=== PATIENT | male | born 1965 | race Caucasian/White ===

== ENCOUNTER 2021-04-02 16:54 | Emergency (ER) | payer OTHER, SELFPAY ==
--- NOTE | ~2021-04-02 | XR_ITS ---
EXAMINATION: XR abdomen/kub 1V EXAM DATE: 04/02/2021 17:28 INDICATION: Left lower quadrant pain and bloating. TECHNIQUE: Frontal projection(s) of the abdomen for interpretation. There is no prior study for elroy white. FINDINGS: There is expected amount of colonic stool and gas. No small bowel dilation, nonobstructi ve bowel gas pattern. There are no suspicious calcifications identified. There is no organomegaly suspected. The bones are unremarkable. There is no free intraperitoneal air. The lung bases are clear. IMPRESSION: Unremarkable abdomen x-ray exam. Reviewed, dictated and finalized at location A. [facility]
[2021-04-02 17:03] VITALS: BP 160/89; PULSE 81; RESP 18; TEMP 37.1; O2SAT 97
--- NOTE | 2021-04-02 17:18 | ED.ABDPAIN ---
HPI - Abdominal Pain General Chief Complaint: Abdominal Pain Stated Complaint: Stomach pain History of Present Illness HPI narrative: This is a 55-year-old male comes in complaining of lower left abdominal pain patient states that he has abdominal cramping with last bowel movement yesterday. Patient states he called his primary care provider and primary care provider appointment with the GI specialist. Patient wants to come in to see if there is anything else we can do. Patient states that he does not have any pain today Related Data Home Medications Medication Instructions Recorded Confirmed atorvastatin 20 mg PO DAILY 04/02/21 04/02/21 fluoxetine 20 mg PO DAILY 04/02/21 04/02/21 trazodone 50 mg PO DAILY 04/02/21 04/02/21 Allergies Allergy/AdvReac Type Severity Reaction Status Date / Time No Known Allergies Allergy Verified 04/02/21 17:09 Review of Systems Review of Systems: Pain in stomach All systems reviewed & are unremarkable except as noted in HPI and below PMFSH Comments At time as signature, I have reviewed and agree with nursing past medical, social, surgical and family history. Please see nursing chart for further information. There is no relevant family history pertinent to the presenting complaint. Exam Narrative: GENERAL:Well-appearing, well-nourished, and in no acute distress. HEAD:Normocephalic, atraumatic. EYES: PERRLA ENT: Nares clear, no rhinorrhea or epistaxis. Mucous membranes moist. CHEST: Clear to auscultation. No respiratory distress. ABDOMEN: Soft, nontender, nondistended, normal active bowel sounds. EXTREMITIES: Normal range of motion. No edema. SKIN: Warm, dry, no rash. NEURO: No focal deficits. Alert and oriented x3. Course Course Emergency Course: KUB negative Vital Signs Vital signs: Vital Signs Temperature 98.8 F 04/02/21 17:03 Pulse Rate 81 04/02/21 17:03 Respiratory Rate 18 04/02/21 17:03 Blood Pressure 160/89 H 04/02/21 17:03 Pulse Oximetry 97 04/02/21 17:03 Temperature 98.8 F 04/02/21 17:03 Pulse Rate 81 04/02/21 17:03 Respiratory Rate 18 04/02/21 17:03 Blood Pressure 160/89 H 04/02/21 17:03 Pulse Oximetry 97 04/02/21 17:03 MDM - Abdominal Pain Differential Diagnosis Differential diagnosis: Likely abdominal pain, acute appendicitis, calculus of kidney, constipation, endometriosis, gastroenteritis, pancreatitis and small bowel obstruction Imaging Data Radiologist's impression: ITS Impressions Abdomen X-Ray 04/02/21 17:29 IMPRESSION: Unremarkable abdomen x-ray exam. Discharge Plan Discharge Clinical Impression: Abdominal pain Qualifiers: Abdominal location: unspecified location Qualified Code(s): R10.9 - Unspecified abdominal pain Hypertension Qualifiers: Hypertension type: unspecified Qualified Code(s): I10 - Essential (primary) hypertension Patient Disposition: Home, Self-Care Condition: Stable Instructions: Antibiotic Form, Abdominal Pain (ED) Additional Instructions: No serious cause of abdominal pain is found at this time. It is important to carefully watch for changes in the abdominal pain that might suggest a serious condition. See your doctor or return to the emergency department immediately if your condition gets worse. These symptoms suggest serious causes of abdominal pain: Your unable to walk easily or walking in a bent over position. You are experiencing pain in the right lower part of her abdomen. Stepping or jumping results in severe pain. The abdomen is hard and painful when you press on it. There is severe abdominal pain when coughing. You are vomiting or gagging. Vomiting is bloody or green or looks like chocolate or coffee. The belly looks very full or basic. You're experiencing severe pain every 3-20 minutes. The stool is bloody or black. Make sure you drink plenty of fluids KEEP your GI appointment. Your blood pressure was elevated in the clinic today, please follow-u
== END 2021-04-02 17:45 | disposition home or self-care (01) ==
PROVIDERS: Emergency Provider Nurse Practitioner Family
DX: R10.9 Unspecified abdominal pain (principal); I10 Essential (primary) hypertension; E78.00 Pure hypercholesterolemia, unspecified; F32.9 Major depressive disorder, single episode, unspecified
CPT/HCPCS: 74018; 99213; G0463